=== PATIENT | male | born 1975 | race African-American/Black ===

== ENCOUNTER 2020-05-07 05:10 | Emergency (ER) | payer OTHER ==
[2020-05-07 05:50] VITALS: BP 175/86; PULSE 89; TEMP 98.1; BMI 36.2
== END 2020-05-07 06:49 | disposition home or self-care (01) ==
LOC: JER 05:10
DX: M25.441 Effusion, right hand (principal)
CPT/HCPCS: 73140-TC-RT-FY; 99284-25

== ENCOUNTER 2024-03-04 07:12 | Emergency (ER) | payer OTHER ==
[2024-03-04 07:58] VITALS: BP 164/111; PULSE 80; RESP 17; TEMP 97.4; BMI 31.6
[2024-03-04] MEDS ORDERED: BACITRACIN ZINC 15 GM TUBE TOPICAL OINTMENT ONE (10:48)
== END 2024-03-04 10:54 | disposition home or self-care (01) ==
LOC: JER 07:12
DX: R51.9 Headache, unspecified (principal); R60.0 Localized edema; R06.02 Shortness of breath; Y04.8XXA Assault by other bodily force, initial encounter
CPT/HCPCS: 71046-TC-FY; 99283-25